=== PATIENT | female | born 1985 | race Caucasian/White ===

== ENCOUNTER 2017-06-24 11:33 | Emergency (ER) | payer BC ==
[2017-06-24 11:44] VITALS: BP 117/75
--- NOTE | 2017-06-24 12:12 | ERNOTE ---
Upper Extremity HPI - General Extremities Pain Location: shoulder: right Time Seen by Provider: 06/24/17 11:47 Source: patient Exam Limitations: no limitations - Immun/Allergies/Home Medications Immunizations: IMMUNIZATION HX Immunizations Up to Date Yes Allergies/Adverse Reactions: Allergies Allergy/AdvReac Type Severity Reaction Status Date / Time No Known Allergies Allergy Verified 06/24/17 11:43 Home Medications: HOME MEDICATIONS SUMAtriptan SUCCINATE [Imitrex] 100 mg PO Q2H PRN 12/02/15 [Last Taken Unknown] Cyclobenzaprine HCl [Flexeril] 10 mg PO TID PRN #30 tab 06/24/17 [Last Taken Unknown] - History of Present Illness Narrative: Patient is here for posterior shoulder pain that she noticed when waking up four days ago, denies any injury, no numbness or weakness, ibuprofen helps. On review of systems she also mentioned bilateral foot pain just distal to heel that she has had for months worse in the morning with the first few steps Date (Duration): 06/20/17 Method of Injury: Reports: no apparent injury Other Injuries: Reports: none Prior Treament: Denies: recently seen, similar symptoms before Review of Systems - Review of Systems Constitutional: Absent: recent illness ENT: Absent: nose congestion, sore throat Respiratory: Absent: shortness of breath Cardiology: Absent: chest pain Gastrointestinal/Abdominal: Absent: nausea, abdominal pain Genitourinary: Present: no symptoms reported Musculoskeletal: Present: See HPI Neurological: Absent: headache, weakness, numbness - Patient's Past Medical History Patient History - Medical: Headache Patient History - Cardiac/Respiratory: No pertinent hx Patient History - Cancer: No Hx of Cancer Patient History - Surgical Procedures: Other - Social History Living Situations: home Psych History: No pertinent hx Alcohol Use: none Drug Use: none - Immunizations Immunizations Up to Date: Yes Physical Exam - Physical Exam General Appearance: Present: wd/wn, alert, no apparent distress Neck: Present: normal inspection, nontender, supple, full range of motion Respiratory: Present: no respiratory distress, normal breath sounds, no accessory muscle use, lungs clear Cardiovascular/Chest: Present: regular rate, rhythm, no murmur Gastrointestinal/Abdominal: Present: normal bowel sounds, nontender Back Exam: Present: normal inspection, no vertebral tenderness, muscle spasm - between right shoulder blade and thoracic spine Extremity Exam: Present: normal inspection, normal range of motion, other - automatic cigar wrapper tender plantal just distal to heel Neurological Exam: Present: alert, oriented, normal mood/affect, no motor/ sensory deficits Skin Exam: Present: normal color, warm/dry ED Progress - Vital Signs Patient's Vital Signs:: I have reviewed the patient's vital signs. Vital Signs: Vital Signs 06/24/17 11:40 Temperature 36.4 C L Pulse Rate 78 Respiratory 12 Rate Blood Pressure 117/75 O2 Sat by Pulse 100 Oximetry - Progress/Reassessment Chief Complaint: Shoulder Injury/Pain Departure Clinical Impression: Myofascial muscle pain, Plantar fasciitis, bilateral - Departure Disposition: Home self-care Condition: Good Instructions: Musculoskeletal Pain, Plantar Fasciitis Additional Instructions: continue ibuprofen (200mg) four tablets three times a day, consider stretching for the shoulder pain and stretch your feet three times daily for the plantar fasciitis Referrals: Bi Tilley MD [Primary Care Provider] - Prescriptions: Cyclobenzaprine HCl [Flexeril] 10 mg PO TID PRN #30 tab PRN Reason: MUSCLE SPASMS
== END 2017-06-24 12:09 | disposition home or self-care (01) ==
LOC: ER 11:33
DX: M79.1 Myalgia (principal); M72.2 Plantar fascial fibromatosis